=== PATIENT | female | born 1985 | race Caucasian/White ===

== ENCOUNTER 2018-04-10 17:02 | Emergency (ER) | payer OTHER ==
[~2018-04-10] VITALS: Ht 154.9 cm; Wt 64.4 kg
[2018-04-10] MEDS ORDERED: FOLIC ACID1 MG (17:09)
[2018-04-10] MEDS ORDERED: PRENATAL + DHA1 EAC1 (17:10)
== END 2018-04-10 21:08 | disposition home or self-care (01) ==
LOC: ER 17:02
DX: O26.891 Other specified pregnancy related conditions, first trimester (principal); R10.2 Pelvic and perineal pain; Z34.01 Encounter for supervision of normal first pregnancy, first trimester

== ENCOUNTER 2018-11-02 14:00 | Inpatient (IN) | payer OTHER ==
[~2018-11-02] VITALS: Ht 154.9 cm; Wt 2929.0 kg
[~2018-11-02 14:00] MED LIST: FOLIC ACID1 MG; PRENATAL + DHA1 EAC1
== END 2018-11-09 15:28 | disposition home or self-care (01) | DRG 807 ==
LOC: O/R 14:00 → LDR 11-06 20:59 → OB/GYN 11-07 00:56 → LDR 11-07 02:54 → OB/GYN 11-07 07:30 → LDR 11-07 08:11 → OB/GYN 11-08 13:46
PROVIDERS: ADMIT Obstetrics & Gynecology
PROC: 4A1HXCZ Monitoring of Products of Conception, Cardiac Rate, External Approach (ICD-10-PCS; 2018-11-06)
PROC: 10E0XZZ Delivery of Products of Conception, External Approach (ICD-10-PCS; principal; 2018-11-06 21:00)
DX: O82 Encounter for cesarean delivery without indication (principal); Z37.0 Single live birth; O14.14 Severe pre-eclampsia complicating childbirth; Z3A.39 39 weeks gestation of pregnancy

== ENCOUNTER 2018-11-06 17:57 | Outpatient (CLI) | payer OTHER | END 2018-11-06 20:58 | disposition still patient (30) | LOC: OBS/DEL 17:57 | DX: O16.3 Unspecified maternal hypertension, third trimester (principal); Z34.03 Encounter for supervision of normal first pregnancy, third trimester ==